=== PATIENT | male | born 1965 | race Caucasian/White ===

== ENCOUNTER 2019-04-25 13:03 | Emergency (ER) | payer SELFPAY ==
[~2019-04-25] VITALS: Ht 160 cm; Wt 77.1 kg
[2019-04-25] MEDS ORDERED: ATORVASTATIN (13:11)
[2019-04-25] MEDS ORDERED: LISINOPRIL (13:11)
--- NOTE | 2019-04-25 13:12 | NUR ---
PT DOES NOT REMEMBER HIS HOME MEDICATION DOSAGES.
--- NOTE | 2019-04-25 13:49 | NUR ---
[employer] officers x2 are at bedside.
--- NOTE | 2019-04-25 14:21 | NUR ---
Patient discharged to home in stable conditon with brisk steady gait. Written and verbal after care instructions given to patient. Patient verbalizes understanding & compliance of instructions.
[2019-04-25 14:22] VITALS: BP 159/9
== END 2019-04-25 14:22 | disposition home or self-care (01) ==
LOC: ER 13:03
DX: S20.212A Contusion of left front wall of thorax, initial encounter (principal); S29.012A Strain of muscle and tendon of back wall of thorax, initial encounter; E11.9 Type 2 diabetes mellitus without complications; Z79.899 Other long term (current) drug therapy; V49.9XXA Car occupant (driver) (passenger) injured in unspecified traffic accident, initial encounter; Y93.89 Activity, other specified; Y92.89 Other specified places as the place of occurrence of the external cause; Y99.8 Other external cause status
CPT/HCPCS: 71250; A4663